=== PATIENT | female | born 2000 | race Hispanic/Latino ===

== ENCOUNTER 2020-02-07 00:58 | Emergency (ER) | payer SELFPAY ==
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
--- NOTE | 2020-02-07 04:22 | Cat Scan Report ---
CT HEAD WITHOUT CONTRAST INDICATION: Banging head on floor at [facility] facility TECHNIQUE: All CT scans at this location are performed using CT dose reduction for ALARA by means of automated exposure control. COMPARISON: None available. FINDINGS: BRAIN: No hemorrhage or mass effect are seen. No evidence of acute infarction is noted. ORBITS: Normal as visualized. SOFT TISSUES OF HEAD: Mild soft tissue swelling is seen in the frontal region scalp. CALVARIUM: Normal. VISUALIZED PARANASAL SINUSES AND MASTOID AIR CELLS: Clear. ADDITIONAL FINDINGS: None. IMPRESSION: No acute intracranial abnormality. Signer Name: Ambrose Pacheco MD Signed: 02/07/2020 4:17 AM Workstation Name: [id number]
[2020-02-07 05:33] VITALS: BP 100/50
== END 2020-02-07 05:51 | disposition home or self-care (01) ==
LOC: EDSEX → ED 00:58
DX: S09.90XA Unspecified injury of head, initial encounter (principal); F25.9 Schizoaffective disorder, unspecified; E11.9 Type 2 diabetes mellitus without complications; Z72.89 Other problems related to lifestyle; Z79.899 Other long term (current) drug therapy; W50.3XXA Accidental bite by another person, initial encounter; Y93.89 Activity, other specified; Y92.89 Other specified places as the place of occurrence of the external cause; Y99.8 Other external cause status
CPT/HCPCS: 70450; 82962